=== PATIENT | female | born 1960 | race Caucasian/White ===

== ENCOUNTER 2020-07-12 07:59 | Emergency (ER) | payer OTHER ==
[~2020-07-12] VITALS: Ht 152.4 cm; Wt 75.7 kg
[2020-07-12 08:11] VITALS: BP_SYST 111
[2020-07-12] MEDS ORDERED: DIPHENHYDRAMINE HCL 25 MG CAPSULE PO ONE (08:30)
[2020-07-12] MEDS ORDERED: PREDNISONE 20 MG TABLET PO ONE (08:30)
[2020-07-12 09:02] VITALS: BP_SYST 111
== END 2020-07-12 09:02 | disposition home or self-care (01) ==
LOC: SED 07:59
DX: T78.40XA Allergy, unspecified, initial encounter (principal); Z91.013 Allergy to seafood; X58.XXXA Exposure to other specified factors, initial encounter
CPT/HCPCS: 99283; J7512; Q0163

== ENCOUNTER 2023-11-22 20:20 | Emergency (ER) | payer BC, OTHER ==
[~2023-11-22] VITALS: Ht 154.9 cm; Wt 86.2 kg
[2023-11-22 20:55] VITALS: BP_SYST 138; PULSE 72; RESP 19; TEMP 98.1; O2SAT 95
[2023-11-22 23:58] VITALS: BP_SYST 138; PULSE 72; RESP 19; TEMP 98.1; O2SAT 95
== END 2023-11-22 23:58 | disposition home or self-care (01) ==
LOC: SED 20:20
DX: M25.551 Pain in right hip (principal); I10 Essential (primary) hypertension; Z91.013 Allergy to seafood; Z79.899 Other long term (current) drug therapy
CPT/HCPCS: 72170-TC; 73502; 99284